=== PATIENT | female | born 2000 | race Caucasian/White ===

== ENCOUNTER 2023-12-15 15:11 | Inpatient (IN) ==
[2023-12-15] MEDS: ONDANSETRON INJ 2 MG/ML 2 ML VIAL IV STA ×2 (15:39→17:17)
[2023-12-15 16:03] LABS: Basophils # (auto) 0.08 K/uL (0.00-0.20); Basophils % (auto) 0.4 %; Eosinophils # (auto) 0.03 K/uL (0.00-0.50); Eosinophils % (auto) 0.1 %; Hematocrit (blood only) 43.4 % (37.0-47.0); Hemoglobin 14.6 g/dl (12.0-16.0); Immature Granulocytes # (auto) 0.12 K/uL (0.01-0.20); Immature Granulocytes % (auto) 0.6 %; Lymphocytes # (auto) 3.47 K/uL (1.20-3.40); Lymphocytes % (auto) 16.5 %; Mean Corpuscular Hemoglobin 29.7 pg (25.0-34.0); Mean Corpuscular Hgb Conc 33.6 g/dL (32.0-36.0); Mean Corpuscular Volume 88.2 fL (80.0-100.0); Mean Platelet Volume 9.4 fL (9.4-12.4); Monocytes % (auto) 5.2 %; Neutrophils # (auto) 16.25 K/uL (1.40-6.50); Neutrophils % (auto) 77.2 %; Platelet Count 383 K/uL (130-400); RDW Coefficient of Variation 11.9 % (11.5-14.5); RDW Standard Deviation 38.3 fL (36.4-46.3); Red Blood Count 4.92 M/uL (4.20-5.40); White Blood Count 21.05 K/ul (4.8-10.8)
[2023-12-15 16:04] LABS: Appearance Urine Clear (Clear); Bacteria Urine Automated None Seen (None Seen); Bilirubin Urine Negative (Negative); Blood Urine 2+ (Negative); Color Urine Yellow; Glucose Urine UA Negative (Negative); Ketones Urine Trace (Negative); Leukocyte Esterase Urine Trace (Negative); Nitrite Urine Negative (Negative); Protein Urine 1+ (Negative); RBC Urine Automated >20 /hpf (0-2); Specific Gravity Urine 1.017 (1.000-1.030); Urobilinogen Urine Negative (Negative); WBC Urine Automated 0-5 /hpf (0-5); pH Urine 6.5 (4.5-7.5)
[2023-12-15 16:17] LABS: Albumin Globulin Ratio 1.4 (0.9-2); Albumin Level 5.1 gm/dl (3.4-5.0); BUN Creatinine Ratio 11.8 (10-20); Bilirubin,Total 0.7 mg/dl (0.2-1.0); Calcium 10.5 mg/dl (8.6-10.3); Creatinine Clr Calc Pharmacy 112.1 ml/min; Est GFR (African American) 112.7 ml/min; Est GFR (Non-African American) 97.3 ml/min; Globulin 3.7 gm/dl (2.5-4.0); Potassium 3.5 mmol/L (3.5-5.1); Total Protein 8.8 gm/dl (6.0-8.3)
[2023-12-15] MEDS: OPTIRAY 320 100ml IV ONE (16:35)
--- NOTE | 2023-12-15 16:36 | Emergency Department Note ---
History of Present Illness General Chief complaint: Abdominal Pain Stated complaint: ABD PAIN Time Seen by Provider: 12/15/23 16:33 History of Present Illness Maximum Pain Intensity: 8 NAME: NOE GARCIA AGE: 23 SEX: F : 2000 ARRIVES VIA: Walk-In INFORMANT: Patient ED PROVIDER(S): BRANDON Healy, Amrik Jhaveri MD The patient is a pleasant 23-year-old female who arrives to the emergency department for evaluation of upper abdominal pain. She reports she began to have severe pain in the epigastric region, with nausea. She states she is planning to move to [place] with her who just returned from [place] in the armed services. They are scheduled to leave at 9:00 tomorrow morning. She reports the pain became so severe she was unable to tolerate it. She does report a history of previous gallbladder issues, however she has never had cholecystitis. She is afebrile, her vital signs are currently stable. Home Medications Medication Instructions Recorded Confirmed Type cholecalciferol (vitamin D3) 50 50 mcg PO DAILY 12/15/23 12/15/23 History mcg (2,000 unit) capsule (Vitamin D3) multivitamin 1 tab PO DAILY 12/15/23 12/15/23 History sertraline 100 mg tablet 100 mg PO DAILY 12/15/23 12/15/23 History trazodone 50 mg tablet 50 mg PO HS PRN Sleep 12/15/23 12/15/23 History Allergies Allergy/AdvReac Type Severity Reaction Status Date / Time No Known Allergies Allergy Verified 12/15/23 19:12 Past Med/Surg History Problem List (Updated 12/15/23 @ 20:12 by BRANDON Leonard) Cholecystitis (Acute) Medical History No pertinent family history Depression Surgical History No pertinent past surgical history Social History Smoking Status: Never smoker Preferred Language: Sinhala Feels Safe at Home: Yes Physical Exam Vital Signs Vital Signs - 24 hr 12/15/23 15:28 12/15/23 16:54 12/15/23 16:54 Temperature 36.8 C Temperature Source Oral Pulse Rate 113 H 89 Pulse Rate [Apical] 89 Pulse Rate from SpO2 Sensor Respiratory Rate 16 24 24 Respiratory Effort / Characteristics Non-Labored Spontaneous Respiratory Depth Normal Shallow Blood Pressure 117/82 Blood Pressure [Right Arm] 125/76 Blood Pressure Mean 93 Blood Pressure Mean [Right Arm] 92 Pulse Oximetry 97 97 97 Oxygen Delivery Method Room Air Room Air Room Air Sepsis Recent Fever Within 48 Hours No Sepsis New/Unexplained Change in Mental Status No Sepsis Action Taken by Nursing No Action Required 12/15/23 16:54 12/15/23 16:54 12/15/23 16:54 Temperature Temperature Source Pulse Rate 93 H Pulse Rate [Apical] Pulse Rate from SpO2 Sensor Respiratory Rate 16 Respiratory Effort / Characteristics Respiratory Depth Blood Pressure 125/76 125/76 Blood Pressure [Right Arm] Blood Pressure Mean 97 97 Blood Pressure Mean [Right Arm] Pulse Oximetry Oxygen Delivery Method Sepsis Recent Fever Within 48 Hours Sepsis New/Unexplained Change in Mental Status Sepsis Action Taken by Nursing 12/15/23 16:57 12/15/23 17:00 12/15/23 17:00 Temperature Temperature Source Pulse Rate 86 Pulse Rate [Apical] Pulse Rate from SpO2 Sensor 85 Respiratory Rate 19 Respiratory Effort / Characteristics Respiratory Depth Blood Pressure 95/72 L 95/72 L Blood Pressure [Right Arm] Blood Pressure Mean 85 85 Blood Pressure Mean [Right Arm] Pulse Oximetry 96 Oxygen Delivery Method Sepsis Recent Fever Within 48 Hours Sepsis New/Unexplained Change in Mental Status Sepsis Action Taken by Nursing 12/15/23 17:12 12/15/23 17:55 12/15/23 17:57 Temperature Temperature Source Pulse Rate 82 Pulse Rate [Apical] 86 Pulse Rate from SpO2 Sensor 84 Respiratory Rate 16 20 Respiratory Effort / Characteristics Non-Labored Spontaneous Respiratory Depth Normal Blood Pressure 113/76 Blood Pressure [Right Arm] 113/76 Blood Pressure Mean 93 Blood Pressure Mean [Right Arm] 88 Pulse Oximetry 98 94 Oxygen Delivery Method Room Air Sepsis Recent Fever Within 48 Hours Sepsis New/Unexplained Change in Mental Status Sepsis Action Taken by Nursing 12/15/23 18:00 12/15/23 18:06 12/15/23 18:24 Temperature Temperature Source Pulse Rate 79 81 Pulse Rate [Apical] Pulse Rate from SpO2 Sensor 78 79 Respiratory Rate 14 12 Respiratory Effort / Characteristics Respiratory Depth Blood Pressure 115/74 Blood Pressure [Right Arm] Blood Pressure Mean 87 Blood Pressure Mean [Right Arm] Pulse Oximetry 95 96 Oxygen Delivery Method Sepsis Recent Fever Within 48 Hours Sepsis New/Unexplained Change in Mental Status Sepsis Action Taken by Nursing 12/15/23 18:28 12/15/23 18:30 12/15/23 18:30 Temperature Temperature Source Pulse Rate 86 Pulse Rate [Apical] Pulse Rate from SpO2 Sensor Respiratory Rate Respiratory Effort / Characteristics Respiratory Depth Blood Pressure 119/76 119/76 Blood Pressure [Right Arm] Blood Pressure Mean 104 104 Blood Pressure Mean [Right Arm] Pulse Oximetry Oxygen Delivery Method Sepsis Recent Fever Within 48 Hours Sepsis New/Unexplained Change in Mental Status Sepsis Action Taken by Nursing 12/15/23 18:45 12/15/23 19:00 12/15/23 19:00 Temperature Temperature Source Pulse Rate 79 88 Pulse Rate [Apical] Pulse Rate from SpO2 Sensor 79 85 Respiratory Rate 19 17 Respiratory Effort / Characteristics Respiratory Depth Blood Pressure 111/77 Blood Pressure [Right Arm] Blood Pressure Mean 87 Blood Pressure Mean [Right Arm] Pulse Oximetry 94 95 Oxygen Delivery Method Sepsis Recent Fever Within 48 Hours Sepsis New/Unexplained Change in Mental Status Sepsis Action Taken by Nursing 12/15/23 19:00 12/15/23 19:15 12/15/23 19:30 Temperature Temperature Source Pulse Rate 79 Pulse Rate [Apical] Pulse Rate from SpO2 Sensor 82 Respiratory Rate 16 Respiratory Effort / Characteristics Respiratory Depth Blood Pressure 111/77 106/78 Blood Pressure [Right Arm] Blood Pressure Mean 87 91 Blood Pressure Mean [Right Arm] Pulse Oximetry 94 Oxygen Delivery Method Sepsis Recent Fever Within 48 Hours Sepsis New/Unexplained Change in Mental Status Sepsis Action Taken by Nursing VITALS: Vitals are noted on the nurse's note and reviewed by myself. Vital signs stable. GENERAL: 23-year-old, in slight distress from pain, nondiaphoretic, well- developed well-nourished. SKIN: The skin was without rashes, erythema, edema, or bruising. HEAD: Normocephalic atraumatic. HEART: Regular rate and rhythm without murmurs gallops or rubs. LUNGS: Clear to auscultation bilaterally without wheezes, rales or rhonchi. No retractions or accessory muscle use. ABDOMEN: Positive bowel sounds x 4. Soft, tender to palpation epigastric, right upper quadrant, Khalil sign positive. Slight guarding present. MUSCULOSKELETAL: No muscle atrophy, erythema, or edema noted. Normal gait. Strength 5/5 throughout. NEURO: Patient was alert and oriented to person place and time. No focal neurological deficits. Course Administered Medications Sodium Chloride (Nss) 1,000 mls @ 125 mls/hr IV .Q8H CHRISTA Stop: 01/14/24 19:29 Last Admin: 12/15/23 19:56 Dose: 125 mls/hr Documented By: SELENA Discontinued Medications Hydromorphone HCl (Hydromorphone Inj 0.5 Mg/0.5 Ml Syr) 0.5 mg IV NOW STA Stop: 12/15/23 18:03 Last Admin: 12/15/23 18:24 Dose: 0.5 mg Documented By: HUGO Sodium Chloride (Nss) 1,000 mls @ 999 mls/hr IV .Q1H1M ONE Stop: 12/15/23 18:01 Last Infusion: 12/15/23 19:42 Dose: Infused Documented By: Admin: 12/15/23 17:59 Dose: 999 mls/hr Documented By: HUGO Piperacillin Sod/Tazobactam Sod (Zosyn) 4.5 gm in 100 mls @ 200 mls/hr IV NOW ONE Stop: 12/15/23 18:35 Last Infusion: 12/15/23 19:42 Dose: Infused Documented By: Admin: 12/15/23 18:24 Dose: 200 mls/hr Documented By: HUGO Ioversol (Optiray 320 100ml) 90 ml IV ONCE ONE Stop: 12/15/23 16:35 Last Admin: 12/15/23 16:35 Dose: 90 ml Documented By: ROXANNA Morphine Sulfate (Morphine Sulfate 4 Mg/Ml 1 Ml Carp\Vial) 4 mg IV NOW STA Stop: 12/15/23 17:02 Last Admin: 12/15/23 17:17 Dose: 4 mg Documented By: HUGO Ondansetron HCl (Ondansetron Inj 2 Mg/Ml 2 Ml Vial) 4 mg IV NOW STA Stop: 12/15/23 15:35 Last Admin: 12/15/23 15:39 Dose: 4 mg Documented By: MARY Ondansetron HCl (Ondansetron Inj 2 Mg/Ml 2 Ml Vial) 4 mg IV NOW STA Stop: 12/15/23 17:02 Last Admin: 12/15/23 17:17 Dose: 4 mg Documented By: HUGO Medical Decision Making Differential Diagnosis Appendicitis, ovarian cyst, ovarian torsion, ectopic , TOA, PID, infections, diverticulitis, UTI, obstruction, mesenteric ischemia, aortic pathology, inflammatory bowel disease, renal colic, PUD, pancreatitis, biliary pathology, hernia, volvulus, constipation, as well as other pathologies. Medical Records Attestation: I reviewed the patient's medical records. Home Medications Current Medication List: was personally reviewed by me Laboratory Data Attestation: I reviewed the patient's lab results. Leukocytosis, 21.05, stable hemoglobin and hematocrit, no significant electrolyte abnormalities, LFTs within normal limits, total bilirubin 0.7. Lactate 2.2. 12/15/23 15:40 12/15/23 15:40 Lab Results 12/15/23 12/15/23 12/15/23 Range/Units 15:40 15:43 16:47 WBC 21.05 H (4.8-10.8) K/ul RBC 4.92 (4.20-5.40) M/uL Hgb 14.6 (12.0-16.0) g/dl Hct 43.4 (37.0-47.0) % MCV 88.2 (80.0-100.0) fL MCH 29.7 (25.0-34.0) pg MCHC 33.6 (32.0-36.0) g/dL RDW Std Deviation 38.3 (36.4-46.3) fL RDW Coeff of Emilia 11.9 (11.5-14.5) % Plt Count 383 (130-400) K/uL MPV 9.4 (9.4-12.4) fL Immature Gran % (Auto) 0.6 % Neut % (Auto) 77.2 % Lymph % (Auto) 16.5 % Burnett % (Auto) 5.2 % Eos % (Auto) 0.1 % Baso % (Auto) 0.4 % Neut # (Auto) 16.25 H (1.40-6.50) K/uL Lymph # (Auto) 3.47 H (1.20-3.40) K/uL Burnett # (Auto) 1.10 H (0.11-0.59) K/uL Eos # (Auto) 0.03 (0.00-0.50) K/uL Baso # (Auto) 0.08 (0.00-0.20) K/uL Immature Gran # (Auto) 0.12 (0.01-0.20) K/uL Sodium 138 (136-145) mmol/L Potassium 3.5 (3.5-5.1) mmol/L Chloride 101 (98-107) mmol/L Carbon Dioxide 28 (21-32) mmol/L Anion Gap 9 (3-11) BUN 10 (6-23) mg/dl Creatinine 0.85 (0.6-1.2) mg/dl Est Cr Clr Drug Dosing 112.1 ml/min Est GFR ( Amer) 112.7 ml/min Est GFR (Non-Af Amer) 97.3 ml/min BUN/Creatinine Ratio 11.8 (10-20) Glucose 97 (70-99(Fasting)) mg/dl Lactate 2.2 H* (0.4-2.0) mmol/L Calcium 10.5 H (8.6-10.3) mg/dl Total Bilirubin 0.7 (0.2-1.0) mg/dl AST 26 (13-39) U/L ALT 51 (7-52) U/L Alkaline Phosphatase 74 (34-104) U/L Total Protein 8.8 H (6.0-8.3) gm/dl Albumin 5.1 H (3.4-5.0) gm/dl Globulin 3.7 (2.5-4.0) gm/dl Albumin/Globulin Ratio 1.4 (0.9-2) Lipase 24 (11-82) U/L Urine Color Yellow Urine Appearance Clear (Clear) Urine pH 6.5 (4.5-7.5) Ur Specific [place] 1.017 (1.000-1.030) Urine Protein 1+ H (Negative) Urine Glucose (UA) Negative (Negative) Urine Ketones Trace H (Negative) Urine Blood 2+ H (Negative) Urine Nitrite Negative (Negative) Urine Bilirubin Negative (Negative) Urine Urobilinogen Negative (Negative) Ur Leukocyte Esterase Trace H (Negative) Urine WBC (Auto) 0-5 (0-5) /hpf Urine RBC (Auto) >20 H (0-2) /hpf U Hyaline Cast (Auto) 3-5 H (0-2) /lpf U Epithel Cells (Auto) 3-5 H (0-2) /hpf Urine Bacteria (Auto) None Seen (None Seen) POC Ur Test NEG (NEG) 12/15/23 12/15/23 Range/Units 17:55 18:33 WBC (4.8-10.8) K/ul RBC (4.20-5.40) M/uL Hgb (12.0-16.0) g/dl Hct (37.0-47.0) % MCV (80.0-100.0) fL MCH (25.0-34.0) pg MCHC (32.0-36.0) g/dL RDW Std Deviation (36.4-46.3) fL RDW Coeff of Emilia (11.5-14.5) % Plt Count (130-400) K/uL MPV (9.4-12.4) fL Immature Gran % (Auto) % Neut % (Auto) % Lymph % (Auto) % Burnett % (Auto) % Eos % (Auto) % Baso % (Auto) % Neut # (Auto) (1.40-6.50) K/uL Lymph # (Auto) (1.20-3.40) K/uL [place]ett # (Auto) (0.11-0.59) K/uL Eos # (Auto) (0.00-0.50) K/uL Baso # (Auto) (0.00-0.20) K/uL Immature Gran # (Auto) (0.01-0.20) K/uL Sodium (136-145) mmol/L Potassium (3.5-5.1) mmol/L Chloride (98-107) mmol/L Carbon Dioxide (21-32) mmol/L Anion Gap (3-11) BUN (6-23) mg/dl Creatinine (0.6-1.2) mg/dl Est Cr Clr Drug Dosing ml/min Est GFR ( Amer) ml/min Est GFR (Non-Af Amer) ml/min BUN/Creatinine Ratio (10-20) Glucose (70-99(Fasting)) mg/dl Lactate 1.0 (0.4-2.0) mmol/L Calcium (8.6-10.3) mg/dl Total Bilirubin (0.2-1.0) mg/dl AST (13-39) U/L ALT (7-52) U/L Alkaline Phosphatase (34-104) U/L Total Protein (6.0-8.3) gm/dl Albumin (3.4-5.0) gm/dl Globulin (2.5-4.0) gm/dl Albumin/Globulin Ratio (0.9-2) Lipase (11-82) U/L Urine Color Yellow Urine Appearance Clear (Clear) Urine pH 8.0 H (4.5-7.5) Ur Specific [place] > 1.045 H (1.000-1.030) Urine Protein Trace H (Negative) Urine Glucose (UA) Negative (Negative) Urine Ketones Negative (Negative) Urine Blood 2+ H (Negative) Urine Nitrite Negative (Negative) Urine Bilirubin Negative (Negative) Urine Urobilinogen Negative (Negative) Ur Leukocyte Esterase Negative (Negative) Urine WBC (Auto) 0-5 (0-5) /hpf Urine RBC (Auto) 11-20 H (0-2) /hpf U Hyaline Cast (Auto) 0-2 (0-2) /lpf U Epithel Cells (Auto) 0-2 (0-2) /hpf Urine Bacteria (Auto) None Seen (None Seen) POC Ur Test (NEG) Imaging Data Radiologist's Impression: Abdomen/Pelvis CT 12/15/23 16:17 CT SCAN OF THE ABDOMEN AND PELVIS WITH IV CONTRAST CLINICAL HISTORY: Generalized abdominal pain. Leukocytosis. COMPARISON STUDY: Abdominal CT dated 11/08/2022. TECHNIQUE: Following the IV administration of 90 cc of Optiray 320, CT scan of the abdomen and pelvis is performed from the lung bases to the proximal femora. Images are reviewed in the axial, sagittal, and coronal planes. IV contrast was administered without complication. A dose lowering technique was utilized adhering to the principles of ALARA. CT DOSE: 1314.64 mGy.cm FINDINGS: Lung bases: The heart is normal in size and without pericardial effusion. The lung bases are clear. Liver: The contrast-enhanced liver is enlarged, measuring 19.3 cm in length. Attenuation is diminished indicating steatosis. There is no intrahepatic biliary ductal dilatation. The hepatic veins and portal veins are patent. Gallbladder: The gallbladder wall is markedly thickened and edematous. Spleen: Normal in size and attenuation. Pancreas: Unremarkable. Adrenal glands: Unremarkable. Kidneys: The contrast enhanced kidneys are normal in size and without hydronephrosis. The kidneys enhance symmetrically. There is a 3 mm nonobstructing calculus in the right lower pole. No ureteral stone is seen. A 1.8 cm cyst arises from the right upper pole. Cortical scarring is seen in the posterior interpolar right kidney. Abdominal vasculature: The abdominal aorta is normal in course and caliber. Bowel: There is no bowel obstruction. The appendix is well-visualized and normal. Peritoneum: There is no intraperitoneal free air or abdominal ascites. There is a large fat-containing supraumbilical hernia. Lymphadenopathy: None. Pelvic viscera: The bladder is decompressed and appears mildly thick walled. The uterus and adnexa are normal as visualized noting bilateral ovarian follicles. There is trace free fluid in the cul-de-sac. Skeletal structures: No lytic or blastic lesions are seen. Mild sclerotic change is seen in the sacroiliac joints. IMPRESSION: 1. The gallbladder wall appears markedly thickened and edematous. Correlate with clinical and laboratory findings for evidence of cholecystitis. A right upper quadrant ultrasound is recommended for further assessment. 2. The liver is mildly enlarged and steatotic. 3. Right-sided nephrolithiasis. 4. Normal appendix. 5. The bladder is decompressed and appears thick-walled. Correlate with clinical findings and urinalysis. 6. Additional findings as above. ACT 112: Negative or not required by law. Electronically signed by: Amrik Downey M.D. 12/15/2023 4:50 PM Gallbladder Ultrasound 12/15/23 16:56 US gallbladder CLINICAL HISTORY: correlate with CT findings TECHNIQUE: Multiple real-time sonographic images of the right upper quadrant were obtained. Comparison: Comparison is made to CT abdomen pelvis 12/15/2023 FINDINGS: The liver is diffusely homogenous with normal contour and echogenicity. No focal mass lesions are seen. No intrahepatic ductal dilatation is seen. Numerous gallstones are seen. Gallbladder wall measures 6.3 mm with pericholecystic fluid. A sonographic Khalil's sign was elicited by the rubber goods finisher. The common duct measures 0.5 cm in diameter at the level of the hepatic artery. The visualized portions of the pancreas appear normal. The right kidney shows normal echogenicity, cortical thickness and renal contour. The right kidney shows no evidence of hydronephrosis. A right upper pole cyst measures 1.7 cm. Small free fluid is noted. IMPRESSION: 1. Findings compatible with acute cholecystitis. 2. Hepatic steatosis. ACT 112: Negative or not required by law. Electronically signed by: Guillermo Zelaya M.D. 12/15/2023 6:14 PM Blood Pressure Blood Pressure Findings: Normal blood pressure MDM Narrative The patient is a pleasant 23-year-old female who arrives to the emergency department for the above-stated complaint. Upon examination the patient is having severe epigastric and right upper quadrant abdominal pain. Initial workup was performed in triage including a saline lock, CBC, CMP, lipase, and urinalysis. CBC shows leukocytosis, 21.05, with stable hemoglobin and hematocrit, CMP shows no significant electrolyte abnormalities, LFTs within normal limits, total bilirubin 0.7. I did add a lactate due to the patient's leukocytosis, which resulted at 2.2. The patient was provided IV fluids, IV morphine, IV Zofran, which did help her pain significantly. Upon reevaluation the patient did require further pain control, she was provided 0.5 mg of IV Dilaudid. CT imaging of the abdomen and pelvis with IV contrast was obtained which showed a thickened and edematous gallbladder wall, recommending correlation with right upper quadrant ultrasound. Ultrasound imaging was obtained which showed findings consistent with acute cholecystitis. She was provided IV Zosyn for antimicrobial coverage. I was able to contact general surgery for consultation. Dr. Varner did agree to accept the patient under his care, for admission and surgical intervention. Please refer to Dr. Varner documentation for further patient care at this time. Continuous director cardiac: Order was placed for continuous director cardiac. Patient was placed on the director cardiac. Patient was noted to be in normal sinus rhythm at an initial rate of 89 bpm. Impression & Plan Cholecystitis Discharge Plan Visit Data Chief Complaint: Abdominal Pain Stated Complaint: ABD PAIN ED Provider: Amrik Jhaveri ED Midlevel Provider: Kait Chavira Discharge Problem: Cholecystitis Forms Stand Alone Forms: [employer] Prescriptions Prescriptions: No Action multivitamin Tablet 1 tab PO DAILY trazodone 50 mg Tablet 50 mg PO HS PRN (Reason: Sleep) sertraline 100 mg tablet 100 mg PO DAILY cholecalciferol (vitamin D3) [Vitamin D3] 50 mcg (2,000 unit) Capsule 50 mcg PO DAILY Referrals Referrals: PCP,NO [Primary Care Provider] -
--- NOTE | 2023-12-15 16:52 | CT Scan Report ---
CT SCAN OF THE ABDOMEN AND PELVIS WITH IV CONTRAST CLINICAL HISTORY: Generalized abdominal pain. Leukocytosis. COMPARISON STUDY: Abdominal CT dated 11/08/2022. TECHNIQUE: Following the IV administration of 90 cc of Optiray 320, CT scan of the abdomen and pelvi s is performed from the lung bases to the proximal femora. Images are reviewed in the axial, sagittal , and coronal planes. IV contrast was administered without complication. A dose lowering technique wa s utilized adhering to the principles of ALARA. CT DOSE: 1314.64 mGy.cm FINDINGS: Lung bases: The heart is normal in size and without pericardial effusion. The lung bases are clear. Liver: The contrast-enhanced liver is enlarged, measuring 19.3 cm in length. Attenuation is diminishe d indicating steatosis. There is no intrahepatic biliary ductal dilatation. The hepatic veins and por micki veins are patent. Gallbladder: The gallbladder wall is markedly thickened and edematous. Spleen: Normal in size and attenuation. Pancreas: Unremarkable. Adrenal glands: Unremarkable. Kidneys: The contrast enhanced kidneys are normal in size and without hydronephrosis. The kidneys enh ance symmetrically. There is a 3 mm nonobstructing calculus in the right lower pole. No ureteral ston e is seen. A 1.8 cm cyst arises from the right upper pole. Cortical scarring is seen in the posterior interpolar right kidney. Abdominal vasculature: The abdominal aorta is normal in course and caliber. Bowel: There is no bowel obstruction. The appendix is well-visualized and normal. Peritoneum: There is no intraperitoneal free air or abdominal ascites. There is a large fat-containin g supraumbilical hernia. Lymphadenopathy: None. Pelvic viscera: The bladder is decompressed and appears mildly thick walled. The uterus and adnexa ar e normal as visualized noting bilateral ovarian follicles. There is trace free fluid in the cul-de-sa c. Skeletal structures: No lytic or blastic lesions are seen. Mild sclerotic change is seen in the sacro iliac joints. IMPRESSION: 1. The gallbladder wall appears markedly thickened and edematous. Correlate with clinical and laborat ory findings for evidence of cholecystitis. A right upper quadrant ultrasound is recommended for furt her assessment. 2. The liver is mildly enlarged and steatotic. 3. Right-sided nephrolithiasis. 4. Normal appendix. 5. The bladder is decompressed and appears thick-walled. Correlate with clinical findings and urinaly sis. 6. Additional findings as above. ACT 112: Negative or not required by law. Electronically signed by: Amrik Downey M.D. 12/15/2023 4:50 PM
[2023-12-15] MEDS: MoRPHine SULFATE 4 MG/ML 1 ML CARP\\VIAL IV STA (17:17)
[2023-12-15] MEDS: SODIUM CHLORIDE 0.9% 1,000 ML IV ONE (17:59)
[2023-12-15 18:16] LABS: Appearance Urine Clear (Clear); Bacteria Urine Automated None Seen (None Seen); Bilirubin Urine Negative (Negative); Blood Urine 2+ (Negative); Cast Urine Automated 0-2 /lpf (0-2); Color Urine Yellow; Epithelial Cell Urine Auto 0-2 /hpf (0-2); Glucose Urine UA Negative (Negative); Ketones Urine Negative (Negative); Leukocyte Esterase Urine Negative (Negative); Nitrite Urine Negative (Negative); Protein Urine Trace (Negative); Specific Gravity Urine > 1.045 (1.000-1.030); Urobilinogen Urine Negative (Negative); WBC Urine Automated 0-5 /hpf (0-5)
--- NOTE | 2023-12-15 18:16 | Ultrasound Report ---
US gallbladder CLINICAL HISTORY: correlate with CT findings TECHNIQUE: Multiple real-time sonographic images of the right upper quadrant were obtained. Comparison: Comparison is made to CT abdomen pelvis 12/15/2023 FINDINGS: The liver is diffusely homogenous with normal contour and echogenicity. No focal mass lesions are see n. No intrahepatic ductal dilatation is seen. Numerous gallstones are seen. Gallbladder wall jules ures 6.3 mm with pericholecystic fluid. A sonographic Khalil's sign was elicited by the rework operator. The common duct measures 0.5 cm in diameter at the level of the hepatic artery. The visualized port ions of the pancreas appear normal. The right kidney shows normal echogenicity, cortical thickness and renal contour. The right kidney sh ows no evidence of hydronephrosis. A right upper pole cyst measures 1.7 cm. Small free fluid is noted. IMPRESSION: 1. Findings compatible with acute cholecystitis. 2. Hepatic steatosis. ACT 112: Negative or not required by law. Electronically signed by: Guillermo Zelaya M.D. 12/15/2023 6:14 PM
[2023-12-15] MEDS: HYDROmorphone INJ 0.5 MG/0.5 ML SYR IV STA (18:24)
[2023-12-15] MEDS: PIPERACILLIN/TAZOBACTAM 4.5 GM/100 ML BAG IV ONE (18:24)
[2023-12-15] MEDS ORDERED: MoRPHine SULFATE 4 MG/ML 1 ML CARP\\VIAL IV PRN (19:17)
--- NOTE | 2023-12-15 19:17 | History & Physical Report ---
Date of Service December 15, 2023 Assessment & Plan (1) Cholecystitis: Plan: Due to the patient's clinical presentation and findings on imaging she is being admitted on the surgical service proceeding as follows: Analgesics to be provided Antiemetics to be provided I feel be acceptable for patient to have some sips of clear liquids tonight, however we will make her n.p.o. after midnight Antibiotics to be administeredthe treating clinician in the [facility] [place] has already initiated Zosyn and this antibiotic will continue IV fluids will be provided for hydration Repeat labs will be checked in the morning to ensure there is no elevation of her LFTs. Will also check coagulation studies at that time Will tentatively have the patient on Dr. Varner operating room schedule tomorrow for a cholecystectomy. At the present time the patient is noted to be nontoxic-appearing as she is normotensive without tachycardia or fever. Additional recommendations be forthcoming based on her clinical course as it unfolds Will use SCDs for DVT prevention, no chemical means due to planned surgery She will be a level 1 full code History of Present Illness Chief Complaint: Abdominal pain Primary Care Provider: NO PCP This is a 23-year-old female who presented to the emergency department secondary to abdominal pain. Patient notes that she had pain that began at approximately noon on 12/15/2023 that was in her upper abdomen in the epigastric area and right upper quadrant. She says it was unrelated to meals. The patient notes that she has had similar pain for "years" but it is never this severe and never last quite as long and therefore she presented to the emergency department. With her symptoms today she says it was unrelated to eating anything, she denies any nausea or vomiting, she denies any fevers, shakes, or chills, denies any prior abdominal surgeries. She denies any modifying factors to her pain. Since arrival to the emergency department she has had labs and imaging which I independently reviewed. A CT scan of the abdomen pelvis showed that the patient's gallbladder was markedly thickened and edematous. Her appendix was noted to be normal. Due to the findings of her gallbladder on CT scan a gallbladder ultrasound was performed which showed findings compatible with acute cholecystitisthere were numerous gallstones with thickening of the gallbladder wall and pericholecystic fluid. There is no biliary ductal dilatation. Labs included CBC were white blood cell count was elevated at 21.0. Hemoglobin and hematocrit as well as the platelet count were normal. Chemistry profile showed sodium and potassium as well as the BUN and creatinine were normal. Lactic acid level was initially elevated at 2.2, but this was checked approximately 2 hours later and had normalized. There is no elevation of patient's LFTs or lipase. Urinalysis was not indicative of infection. At the time my interview the patient was resting comfortably bed and she was no distress. Concerning past medical history the patient says that she has been treated for depression and anxiety Concerning past surgical history she denies any prior surgeries Concerning social history she is a none smoker of tobacco products but does admit to using marijuana most recently 2 to 3 days ago Concerning family history she denies any family history of gallbladder disease Allergies Allergy/AdvReac Type Severity Reaction Status Date / Time No Known Allergies Allergy Verified 12/15/23 19:12 Home Medications Medication Instructions Recorded Confirmed Type cholecalciferol (vitamin D3) 50 50 mcg PO DAILY 12/15/23 12/15/23 History mcg (2,000 unit) capsule (Vitamin D3) multivitamin 1 tab PO DAILY 12/15/23 12/15/23 History sertraline 100 mg tablet 100 mg PO DAILY 12/15/23 12/15/23 History trazodone 50 mg tablet 50 mg PO HS PRN Sleep 12/15/23 12/15/23 History Past Med/Surg History Problem List (Updated 12/15/23 @ 19:15 by Dusty Siddiqi PA-C) Cholecystitis Medical History No pertinent family history Depression Surgical History No pertinent past surgical history Social History Smoking Status: Never smoker Preferred Language: Upper Sorbian Feels Safe at Home: Yes Review of Systems Review of Systems: All systems reviewed & are unremarkable except as noted in HPI & below Physical Exam Constitutional: WD/WN, vitals as above Eyes: + anicteric sclerae ENMT: Ears: no hearing impairment and no external ear abnormality No sublingual jaundice noted Neck: trachea midline Respiratory: normal respiratory effort, lungs clear to auscultation Cardiovascular: Rate/Rhythm: regular rate and regular rhythm Gastrointestinal (Abdomen): Patient's abdomen is rotund but soft. It is nonrigid. Bowel sounds are present. Patient did have pain with palpation in the right upper quadrant and to a lesser degree the epigastric area. There is no rebound tenderness or guarding. Musculoskeletal: No calf tenderness, no pedal edema Skin: no jaundice Neurologic: moves all extremities Psychiatric: A+Ox3, euthymic affect Results & Data Results & Data Vital Signs (Past 12 Hours) Vital Signs Temp Pulse Pulse Resp BP BP Pulse Ox 12/15/23 18:28 86 12/15/23 17:57 86 20 113/76 94 12/15/23 16:54 89 24 97 12/15/23 16:54 89 24 125/76 97 12/15/23 15:28 36.8 C 113 H 16 117/82 97 O2 Del Method 12/15/23 18:28 12/15/23 17:57 Room Air 12/15/23 16:54 Room Air 12/15/23 16:54 Room Air 12/15/23 15:28 Room Air Supervising Physician Co-Signing Physician Notes pnt d/w TIM Bridges, labs and imaging reviewed, agree with above. presented with epigastric abd pain, ct and us show cholecystitis, lft's normal, wbc elevated. admit, plan for robotic cholecystectomy in am. PG Care Time/CCT Total # of Minutes Spent Total Time Spent with Patient: Total time spent is greater than 50% in coordination of care (as documented) at patient's floor/unit and/or counseling patient: Coding Level of Care Code 91061 INT INP/OBS CARE 3/75MIN Diagnoses Cholecystitis K81.9
[2023-12-15] MEDS: SODIUM CHLORIDE 0.9% 1,000 ML IV SCH (19:56)
[2023-12-15] MEDS ORDERED: traZODone HCL 50 MG TAB PO PRN (21:12)
[2023-12-15] MEDS: ACETAMINOPHEN 1,000 MG/100 ML VIAL IV PRN (21:38)
[2023-12-15] MEDS: PIPERACILLIN/TAZOBACTAM 4.5 GM in DEXTROSE 5% MINI-B 100 ML IV SCH (23:20)
[2023-12-16 06:46] LABS: Basophils # (auto) 0.06 K/uL (0.00-0.20); Basophils % (auto) 0.4 %; Eosinophils # (auto) 0.13 K/uL (0.00-0.50); Eosinophils % (auto) 0.9 %; Hematocrit (blood only) 39.5 % (37.0-47.0); Immature Granulocytes # (auto) 0.05 K/uL (0.01-0.20); Immature Granulocytes % (auto) 0.3 %; Lymphocytes # (auto) 2.74 K/uL (1.20-3.40); Lymphocytes % (auto) 18.8 %; Mean Corpuscular Hemoglobin 29.5 pg (25.0-34.0); Mean Corpuscular Hgb Conc 32.9 g/dL (32.0-36.0); Mean Corpuscular Volume 89.8 fL (80.0-100.0); Mean Platelet Volume 9.4 fL (9.4-12.4); Monocytes # (auto) 1.05 K/uL (0.11-0.59); Monocytes % (auto) 7.2 %; Neutrophils # (auto) 10.56 K/uL (1.40-6.50); Neutrophils % (auto) 72.4 %; Platelet Count 276 K/uL (130-400); RDW Coefficient of Variation 11.9 % (11.5-14.5); RDW Standard Deviation 38.7 fL (36.4-46.3); White Blood Count 14.59 K/ul (4.8-10.8)
--- NOTE | 2023-12-16 06:58 | Anesthesiology Consultation ---
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 History Surgery Operation Date: 12/16/23 07:00 Proposed Procedures p Robotic Laparoscopic Cholecystectomy - Clayton Varner DO, FACS Height/Weight Height: 5 ft 4 in Weight: 89.2 kg Allergies Allergy/AdvReac Type Severity Reaction Status Date / Time No Known Allergies Allergy Verified 12/15/23 19:12 Medications Home Medications Medication Instructions Recorded Confirmed Last Taken cholecalciferol (vitamin D3) 50 50 mcg PO DAILY 12/15/23 12/15/23 12/14/23 mcg (2,000 unit) capsule (Vitamin D3) multivitamin 1 tab PO DAILY 12/15/23 12/15/23 12/14/23 sertraline 100 mg tablet 100 mg PO DAILY 12/15/23 12/15/23 12/14/23 trazodone 50 mg tablet 50 mg PO HS PRN Sleep 12/15/23 12/15/23 Unknown Active Medications Generic Name Dose Route Start Last Admin Trade Name Freq PRN Reason Stop Dose Admin Acetaminophen 1,000 mg in 100 mls @ 400 mls/hr 12/15/23 19:17 12/16/23 06:40 Ofirmev IV 12/18/23 19:16 400 mls/hr Q8H PRN Administration Moderate Pain (Scale 4, 5, 6) Sodium Chloride 1,000 mls @ 125 mls/hr 12/15/23 19:30 12/16/23 03:28 Nss IV 01/14/24 19:29 125 mls/hr .Q8H CHRISTA Administration Piperacillin Sod/Tazobactam 100 mls @ 25 mls/hr 12/16/23 00:00 12/16/23 03:27 Sod 4.5 gm/ Dextrose IV 12/26/23 00:00 Infused Q8H CHRISTA Infusion Protocol Past Medical History Medical History No pertinent family history Depression Past Surgical History Surgical History No pertinent past surgical history Social History Smoking Status: Never smoker Hx Alcohol Use: No Hx Substance Use: Yes substance use type: marijuana Last Used Substance: Days (ago) Last Used Substance Other:: 12/11 Physical Exam Vital Signs Last Vital Signs Temp 98.6 F 12/15/23 21:07 Pulse 91 H 12/15/23 21:07 Resp 18 12/15/23 21:07 BP 115/76 12/15/23 21:07 Pulse Ox 95 12/15/23 21:07 O2 Del Method Room Air 12/15/23 21:07 Testing Laboratory Results 12/16/23 06:05 Urine Color Yellow 12/15/23 17:55 Urine Appearance Clear (Clear) 12/15/23 17:55 Urine pH 8.0 (4.5-7.5) H 12/15/23 17:55 Ur Specific [place] > 1.045 (1.000-1.030) H 12/15/23 17:55 Urine Protein Trace (Negative) H 12/15/23 17:55 Urine Glucose (UA) Negative (Negative) 12/15/23 17:55 Urine Ketones Negative (Negative) 12/15/23 17:55 Urine Nitrite Negative (Negative) 12/15/23 17:55 Ur Leukocyte Esterase Negative (Negative) 12/15/23 17:55 Urine WBC (Auto) 0-5 /hpf (0-5) 12/15/23 17:55 Urine RBC (Auto) 11-20 /hpf (0-2) H 12/15/23 17:55 U Hyaline Cast (Auto) 0-2 /lpf (0-2) 12/15/23 17:55 U Epithel Cells (Auto) 0-2 /hpf (0-2) 12/15/23 17:55 Urine Bacteria (Auto) None Seen (None Seen) 12/15/23 17:55 12/15/23 15:43 POC Ur Test NEG
[2023-12-16 07:09] LABS: Albumin Globulin Ratio 1.3 (0.9-2); BUN Creatinine Ratio 9.3 (10-20); Calcium 8.8 mg/dl (8.6-10.3); Creatinine Clr Calc Pharmacy 127.2 ml/min; Est GFR (African American) 131.1 ml/min; Est GFR (Non-African American) 113.1 ml/min; INR 1.1 (0.9-1.1); Partial Thromboplastin Ratio 1.1; Partial Thromboplastin Time 29 Seconds (21-31); Potassium 3.8 mmol/L (3.5-5.1); Prothrombin Time 11.9 Seconds (9.0-12.0)
[2023-12-16] MEDS: SERTRALINE HCL 100 MG TABLET PO SCH (07:45)
--- NOTE | 2023-12-16 09:31 | Surgery Progress Note ---
Date of Service December 16, 2023 Assessment & Plan (1) Cholecystitis: Plan: cholelithiasis with acute cholecystitis. LFTs normal plan for robotic assisted laparoscopic cholecystectomy risks discussed to include but not limited to bleeding, infection, retained sto ne, bile leak, open surgery, damage to surrounding structures including bile duct, need for future or more extensive surgery, failure to treat symptoms, and risks of anesthesia. Potential discharge later today or tomorrow Admission and Anticipated Discharge Date Admission Date: December 15, 2023 Subjective Admitted for cholecystitis, no changes overnight, pain slightly improved Physical Exam Constitutional: WD/WN, vitals as above Respiratory: normal respiratory effort, lungs clear to auscultation Cardiovascular: RRR, no murmur, no edema Gastrointestinal (Abdomen): Percussion/Palpation: + abdomen tender (Tender palpation right upper quadrant) and abdomen soft; no guarding and abdomen not rigid Results & Data Vital Signs (Past 12 Hours) Vital Signs Temp Pulse Resp BP Pulse Ox O2 Del Method 12/16/23 07:40 37.0 C 80 14 103/68 95 Room Air Laboratory Results Laboratory Results - last 24 hr 12/15/23 12/15/23 12/15/23 15:40 15:43 16:47 WBC 21.05 H RBC 4.92 Hgb 14.6 Hct 43.4 MCV 88.2 MCH 29.7 MCHC 33.6 RDW Std Deviation 38.3 RDW Coeff of Emilia 11.9 Plt Count 383 MPV 9.4 Immature Gran % (Auto) 0.6 Neut % (Auto) 77.2 Lymph % (Auto) 16.5 [place] % (Auto) 5.2 Eos % (Auto) 0.1 Baso % (Auto) 0.4 Neut # (Auto) 16.25 H Lymph # (Auto) 3.47 H [place] # (Auto) 1.10 H Eos # (Auto) 0.03 Baso # (Auto) 0.08 Immature Gran # (Auto) 0.12 PT INR APTT PTT Ratio Sodium 138 Potassium 3.5 Chloride 101 Carbon Dioxide 28 Anion Gap 9 BUN 10 Creatinine 0.85 Est Cr Clr Drug Dosing 112.1 Est GFR ( Amer) 112.7 Est GFR (Non-Af Amer) 97.3 BUN/Creatinine Ratio 11.8 Glucose 97 Lactate 2.2 H* Calcium 10.5 H Total Bilirubin 0.7 AST 26 ALT 51 Alkaline Phosphatase 74 Total Protein 8.8 H Albumin 5.1 H Globulin 3.7 Albumin/Globulin Ratio 1.4 Lipase 24 Urine Color Yellow Urine Appearance Clear Urine pH 6.5 Ur Specific [place] 1.017 Urine Protein 1+ H Urine Glucose (UA) Negative Urine Ketones Trace H Urine Blood 2+ H Urine Nitrite Negative Urine Bilirubin Negative Urine Urobilinogen Negative Ur Leukocyte Esterase Trace H Urine WBC (Auto) 0-5 Urine RBC (Auto) >20 H U Hyaline Cast (Auto) 3-5 H U Epithel Cells (Auto) 3-5 H Urine Bacteria (Auto) None Seen POC Ur Test NEG 12/15/23 12/15/23 12/16/23 17:55 18:33 06:05 WBC 14.59 H RBC 4.40 Hgb 13.0 Hct 39.5 MCV 89.8 MCH 29.5 MCHC 32.9 RDW Std Deviation 38.7 RDW Coeff of [place] 11.9 Plt Count 276 MPV 9.4 Immature Gran % (Auto) 0.3 Neut % (Auto) 72.4 Lymph % (Auto) 18.8 [place] % (Auto) 7.2 Eos % (Auto) 0.9 Baso % (Auto) 0.4 Neut # (Auto) 10.56 H Lymph # (Auto) 2.74 [place] # (Auto) 1.05 H Eos # (Auto) 0.13 Baso # (Auto) 0.06 Immature Gran # (Auto) 0.05 PT 11.9 INR 1.1 APTT 29 PTT Ratio 1.1 Sodium 138 Potassium 3.8 Chloride 106 Carbon Dioxide 26 Anion Gap 6 BUN 7 Creatinine 0.75 Est Cr Clr Drug Dosing 127.2 Est GFR ( Amer) 131.1 Est GFR (Non-Af Amer) 113.1 BUN/Creatinine Ratio 9.3 L Glucose 92 Lactate 1.0 Calcium 8.8 Total Bilirubin 1.0 AST 27 ALT 50 Alkaline Phosphatase 62 Total Protein 7.0 D Albumin 4.0 Globulin 3.0 Albumin/Globulin Ratio 1.3 Lipase 21 Urine Color Yellow Urine Appearance Clear Urine pH 8.0 H Ur Specific [place] > 1.045 H Urine Protein Trace H Urine Glucose (UA) Negative Urine Ketones Negative Urine Blood 2+ H Urine Nitrite Negative Urine Bilirubin Negative Urine Urobilinogen Negative Ur Leukocyte Esterase Negative Urine WBC (Auto) 0-5 Urine RBC (Auto) 11-20 H U Hyaline Cast (Auto) 0-2 U Epithel Cells (Auto) 0-2 Urine Bacteria (Auto) None Seen POC Ur Test Diagnostic Findings CT and ultrasound personally viewed and interpreted and agree with the assessment of cholelithiasis with acute cholecystitis. Abdomen/Pelvis CT 12/15/23 16:17 CT SCAN OF THE ABDOMEN AND PELVIS WITH IV CONTRAST CLINICAL HISTORY: Generalized abdominal pain. Leukocytosis. COMPARISON STUDY: Abdominal CT dated 11/08/2022. TECHNIQUE: Following the IV administration of 90 cc of Optiray 320, CT scan of the abdomen and pelvis is performed from the lung bases to the proximal femora. Images are reviewed in the axial, sagittal, and coronal planes. IV contrast was administered without complication. A dose lowering technique was utilized adhering to the principles of ALARA. CT DOSE: 1314.64 mGy.cm FINDINGS: Lung bases: The heart is normal in size and without pericardial effusion. The lung bases are clear. Liver: The contrast-enhanced liver is enlarged, measuring 19.3 cm in length. Attenuation is diminished indicating steatosis. There is no intrahepatic biliary ductal dilatation. The hepatic veins and portal veins are patent. Gallbladder: The gallbladder wall is markedly thickened and edematous. Spleen: Normal in size and attenuation. Pancreas: Unremarkable. Adrenal glands: Unremarkable. Kidneys: The contrast enhanced kidneys are normal in size and without hydronephrosis. The kidneys enhance symmetrically. There is a 3 mm nonobstructing calculus in the right lower pole. No ureteral stone is seen. A 1.8 cm cyst arises from the right upper pole. Cortical scarring is seen in the posterior interpolar right kidney. Abdominal vasculature: The abdominal aorta is normal in course and caliber. Bowel: There is no bowel obstruction. The appendix is well-visualized and normal. Peritoneum: There is no intraperitoneal free air or abdominal ascites. There is a large fat-containing supraumbilical hernia. Lymphadenopathy: None. Pelvic viscera: The bladder is decompressed and appears mildly thick walled. The uterus and adnexa are normal as visualized noting bilateral ovarian follicles. There is trace free fluid in the cul-de-sac. Skeletal structures: No lytic or blastic lesions are seen. Mild sclerotic change is seen in the sacroiliac joints. IMPRESSION: 1. The gallbladder wall appears markedly thickened and edematous. Correlate with clinical and laboratory findings for evidence of cholecystitis. A right upper quadrant ultrasound is recommended for further assessment. 2. The liver is mildly enlarged and steatotic. 3. Right-sided nephrolithiasis. 4. Normal appendix. 5. The bladder is decompressed and appears thick-walled. Correlate with clinical findings and urinalysis. 6. Additional findings as above. ACT 112: Negative or not required by law. Electronically signed by: Amrik Downey M.D. 12/15/2023 4:50 PM Gallbladder Ultrasound 12/15/23 16:56 US gallbladder CLINICAL HISTORY: correlate with CT findings TECHNIQUE: Multiple real-time sonographic images of the right upper quadrant were obtained. Comparison: Comparison is made to CT abdomen pelvis 12/15/2023 FINDINGS: The liver is diffusely homogenous with normal contour and echogenicity. No focal mass lesions are seen. No intrahepatic ductal dilatation is seen. Numerous gallstones are seen. Gallbladder wall measures 6.3 mm with pericholecystic fluid. A sonographic Khalil's sign was elicited by the hoop machine operator. The common duct measures 0.5 cm in diameter at the level of the hepatic artery. The visualized portions of the pancreas appear normal. The right kidney shows normal echogenicity, cortical thickness and renal contour. The right kidney shows no evidence of hydronephrosis. A right upper pole cyst measures 1.7 cm. Small free fluid is noted. IMPRESSION: 1. Findings compatible with acute cholecystitis. 2. Hepatic steatosis. ACT 112: Negative or not required by law. Electronically signed by: Guillermo Zelaya M.D. 12/15/2023 6:14 PM PG Care Time/CCT Total # of Minutes Spent Total Time Spent with Patient: Total time spent is greater than 50% in coordination of care (as documented) at patient's floor/unit and/or counseling patient: Coding Level of Care Code 78373 SUB INP/OBS CARE 2/35MIN Diagnoses Cholecystitis K81.9
[2023-12-16] MEDS: INDOCYANINE GREEN 25 MG VIAL INJ ONE (11:39)
[2023-12-16] MEDS: LACTATED RINGER'S 1,000 ML IV SCH ×2 (11:42→16:03)
[2023-12-16] MEDS ORDERED: MIDAZOLAM HCL 1 MG/ML 2ML VIAL ONE (11:48)
[2023-12-16] MEDS ORDERED: fentaNYL citrate PF 100 MCG/2 ML VIAL ONE ×2 (11:48→12:23)
[2023-12-16] MEDS ORDERED: ePHEDrine sulfate 50 MG/ML AMP IV PRN (11:59)
[2023-12-16] MEDS ORDERED: ATROPINE SULFATE 0.1 MG/ML 10ML SYR IV PRN (11:59)
[2023-12-16] MEDS ORDERED: DROPERIDOL 5 MG/2 ML VIAL IV PRN (11:59)
[2023-12-16] MEDS ORDERED: ONDANSETRON INJ 2 MG/ML 2 ML VIAL ONE (12:55)
[2023-12-16] MEDS ORDERED: LIDOCAINE 2% 2 ML VIAL/AMP(20MG/ML) INFIL ONE (12:55)
[2023-12-16] MEDS ORDERED: DEXAMETHASONE SOD INJ 4 MG/ML VIAL ONE (12:55)
[2023-12-16] MEDS ORDERED: SUGAMMADEX SODIUM 200 MG/2 ML VIAL IV ONE (12:55)
[2023-12-16] MEDS ORDERED: PROPOFOL IV EMULSION 10 MG/ML 20 ML VIAL IV ONE (12:55)
--- NOTE | 2023-12-16 13:31 | Operative Report ---
PG Post Operative Report Pre & Post Diagnosis Operation Date: 12/16/23 07:00 Pre-Op Diagnosis: Cholecystitis Post-Op Diagnosis: Cholecystitis I identified the patient and participated in the time-out.: Yes Procedure Operation Date: 12/16/23 07:00 Actual Procedures p Robotic Laparoscopic Cholecystectomy(Not Applicable) - Clayton Varner DO, FACS Surgeon Clayton Varner DO, FACS Clinical Ob Pooja Owens Estimated Blood Loss 20 Findings Consistent with Post-Op Diagnosis Significant acute cholecystitis. Critical view of safety obtained, cystic duct and artery doubly clipped and divided. Specimens Gallbladder Anesthesia Type General Complications none Disposition Accompanied Patient To Recovery: No Disposition: Recovery Room Indications 23-year-old female presented with cholelithiasis with acute cholecystitis on imaging, plan for robotic cholecystectomy. The risks of the procedure were discussed, all questions were answered, and the patient agreed to proceed with s urgery as planned. Description of Procedure The patient was properly identified, consented, and taken to the operating room where she was placed in the supine position. 2.5 mg of indocyanine green were administered IV approximately 45 min prior to the surgery. General endotracheal anesthesia was induced. SCDs and a safety belt were placed. Preoperative antibiotics were administered. The patient's abdomen was prepped and draped in the standard sterile fashion. A surgical timeout was performed and all parties were in agreement that this was the correct patient and procedure to be performed and we continued as planned. An incision was made just above the umbilicus and to the left of midline. Veress needle was inserted and saline drop test confirmed entry to the abdomen. The abdomen was insufflated with carbon dioxide which the patient tolerated incident. Veress needle was removed and the abdomen is entered using the Optiview technique and a 5 mm camera. The introducer was removed and the abdomen inspected. No damage from initial trocar placement or Veress needle placement was identified. There were no significant abnormalities to the 4 quadrants of the abdomen. 8 mm robotic ports were then placed on the left and right. An additional 5 mm physician assistant surgery port was placed in the lateral right subcostal position. The patient was placed in reverse Trendelenburg position and rotated towards the left. The robot was then docked and the camera and robotic instruments were inserted. The gallbladder was significantly and acutely inflamed. Omental adhesions were taken down with blunt dissection and electrocautery. The gallbladder wall was quite thick and the gallbladder was distended. A cholecystotomy placed at the dome of the gallbladder and bile suctioned. This was then used for retraction. The dome of the gallbladder was grasped by the physician assistant surgery and retracted towards the left upper quadrant and the infundibulum was retracted toward the right lower quadrant revealing Calot's triangle. Peritoneal attachments were taken down with electrocautery and blunt dissection. The cystic duct and artery were circumferentially dissected. A window of safety was obtained showing the cystic duct entering the gallbladder with no aberrant structures noted. The cystic duct was short and mildly dilated. We were able to identify the cystic duct utilizing the ICG. The cystic duct and artery were doubly clipped and divided. The gallbladder was then lifted off the gallbladder fossa with electrocautery. The right upper quadrant was irrigated and hemostasis was found to be good. The gallbladder was placed in an Endo Catch bag and removed through the one of the port sites. The fascia and incision had to be extended to accommodate the gallbladder. This was then closed with [id number] 0 Vicryl suture utilizing a Jared-Nancy device. The instruments were removed and the robot was undocked. The trochars were removed and the abdomen was allowed to collapse. The skin of all ports was closed with 4-0 Monocryl subcuticular sutures. Dermabond was placed over the wounds. The patient was extubated in the operating room and taken to the PACU where she recovered without apparent incident. All sponge, instrument and needle counts were correct at the conclusion of the procedure. The patient tolerated the procedure well. The nurse practitioner was present and scrubbed for the entirety of the case and was essential in positioning the patient, prepping and draping, retraction and exposure, driving the laparoscope, exchange of the robotic instruments removal of the gallbladder, closure of the incisions, and placement of the dressings. I attest to the content of the Intraoperative Record and any orders documented therein. Any exceptions are noted below.
[2023-12-16] MEDS: BUPIVACAINE 0.5 % 5 MG/1 ML MPF 30ML VIAL ONE (13:37)
[2023-12-16] MEDS: HYDROmorphone INJ 2 MG/ML SYR/VIAL IV PRN (13:58)
[2023-12-16] MEDS: ACETAMINOPHEN 1,000 MG/100 ML VIAL IV STA (14:28)
--- NOTE | 2023-12-16 14:40 | Anesthesiology Progress Note ---
Date of Service December 16, 2023 Anesthesia Post Procedure Vital Signs Vital Signs: Temp Pulse Pulse Pulse Resp BP BP 12/16/23 14:30 36.7 C 85 14 126/79 12/16/23 14:20 68 14 113/76 12/16/23 14:10 37.2 C 90 12 125/83 12/16/23 14:00 82 14 127/85 12/16/23 13:50 89 18 129/85 12/16/23 13:40 36.5 C 88 16 133/88 12/16/23 11:34 36.8 C 75 20 113/66 12/16/23 07:40 37.0 C 80 14 103/68 12/15/23 21:07 37.0 C 91 H 18 12/15/23 20:26 96 H 16 12/15/23 19:30 106/78 12/15/23 19:15 79 16 12/15/23 19:00 111/77 12/15/23 19:00 111/77 12/15/23 19:00 88 17 12/15/23 18:45 79 19 12/15/23 18:30 119/76 12/15/23 18:30 119/76 12/15/23 18:28 86 12/15/23 18:24 81 12 12/15/23 18:06 79 14 12/15/23 18:00 115/74 12/15/23 17:57 86 20 12/15/23 17:55 113/76 12/15/23 17:12 82 16 12/15/23 17:00 95/72 L 12/15/23 17:00 95/72 L 12/15/23 16:57 86 19 12/15/23 16:54 125/76 12/15/23 16:54 125/76 12/15/23 16:54 93 H 16 12/15/23 16:54 89 24 12/15/23 16:54 89 24 12/15/23 15:28 36.8 C 113 H 16 117/82 BP Pulse Ox O2 Del Method O2 Flow Rate 12/16/23 14:30 97 Nasal Cannula 2 12/16/23 14:20 97 Nasal Cannula 2 12/16/23 14:10 96 Room Air 12/16/23 14:00 98 Oxymask 3 12/16/23 13:50 97 Oxymask 4 12/16/23 13:40 99 Oxymask 6 12/16/23 11:34 98 Room Air 12/16/23 07:40 95 Room Air 12/15/23 21:07 115/76 95 Room Air 12/15/23 20:26 112/68 95 Room Air 12/15/23 19:30 12/15/23 19:15 94 12/15/23 19:00 12/15/23 19:00 12/15/23 19:00 95 12/15/23 18:45 94 12/15/23 18:30 12/15/23 18:30 12/15/23 18:28 12/15/23 18:24 96 12/15/23 18:06 95 12/15/23 18:00 12/15/23 17:57 113/76 94 Room Air 12/15/23 17:55 12/15/23 17:12 98 12/15/23 17:00 12/15/23 17:00 12/15/23 16:57 96 12/15/23 16:54 12/15/23 16:54 12/15/23 16:54 12/15/23 16:54 97 Room Air 12/15/23 16:54 125/76 97 Room Air 12/15/23 15:28 97 Room Air Pain Intensity Abdomen: Pain Intensity: 3 Transfer of Care Handoff Completed per policy Notes Mental Status: alert / awake / arousable and participated in evaluation Nausea / Vomiting: adequately controlled Pain: adequately controlled Airway Patency, RR, SpO2: stable & adequate BP & HR: stable & adequate Hydration State: stable & adequate Anesthetic Complications: no major complications apparent and Pt Satisfied with anesthetic care
[2023-12-16] MEDS ORDERED: MoRPHine SULFATE 2 MG/ML CARP IV PRN (14:53)
[2023-12-16] MEDS ORDERED: Nursing to Pharmacy Communication SCH (16:00)
[2023-12-16] MEDS: oxyCODONE HCL IR 5 MG TAB (IMMEDIATE RELEASE) PO PRN (16:06)
[2023-12-16] MEDS: ACETAMINOPHEN 1,000 MG/100 ML VIAL IV SCH ×2 (16:08→23:21)
[2023-12-16] MEDS: ONDANSETRON INJ 2 MG/ML 2 ML VIAL IV PRN (16:20)
--- NOTE | 2023-12-16 20:37 | Communication Note ---
Date of Service: December 16, 2023 Surgical staff was notified that since surgery patient has had 2 bouts of emesis. The patient also notes that she feels hot. The patient was seen and evaluated at the bedside. She notes expected incisional pain near her surgical incisions. Her abdomen is soft with minimal distention. There is no jaundice in her sclera or skin or sublingual region. Her vitals were reviewed and since surgery she has been afebrile. She does not have tachycardia or hypotension. At this time I suspect the patient's symptoms are secondary to her recent surgery/anesthesia. We will continue to clinically monitor her providing analgesics and antiemetics as needed. Repeat labs have been ordered for tomorrow.
[2023-12-16] MEDS: MoRPHine SULFATE 4 MG/ML 1 ML CARP\\VIAL IV PRN (21:09)
[2023-12-17 06:37] LABS: Basophils # (auto) 0.03 K/uL (0.00-0.20); Basophils % (auto) 0.2 %; Eosinophils # (auto) 0.06 K/uL (0.00-0.50); Eosinophils % (auto) 0.4 %; Hemoglobin 12.1 g/dl (12.0-16.0); Immature Granulocytes # (auto) 0.06 K/uL (0.01-0.20); Immature Granulocytes % (auto) 0.4 %; Lymphocytes # (auto) 3.35 K/uL (1.20-3.40); Lymphocytes % (auto) 22.5 %; Mean Corpuscular Hemoglobin 29.7 pg (25.0-34.0); Mean Corpuscular Hgb Conc 32.7 g/dL (32.0-36.0); Mean Corpuscular Volume 90.7 fL (80.0-100.0); Mean Platelet Volume 9.3 fL (9.4-12.4); Monocytes # (auto) 0.86 K/uL (0.11-0.59); Monocytes % (auto) 5.8 %; Neutrophils # (auto) 10.52 K/uL (1.40-6.50); Neutrophils % (auto) 70.7 %; Platelet Count 278 K/uL (130-400); RDW Coefficient of Variation 11.9 % (11.5-14.5); RDW Standard Deviation 39.5 fL (36.4-46.3); Red Blood Count 4.08 M/uL (4.20-5.40); White Blood Count 14.88 K/ul (4.8-10.8)
[2023-12-17 07:03] LABS: Albumin Globulin Ratio 1.2 (0.9-2); Albumin Level 3.8 gm/dl (3.4-5.0); BUN Creatinine Ratio 7.6 (10-20); Bilirubin,Total 0.5 mg/dl (0.2-1.0); Calcium 9.1 mg/dl (8.6-10.3); Creatinine Clr Calc Pharmacy 120.8 ml/min; Est GFR (African American) 123.2 ml/min; Est GFR (Non-African American) 106.3 ml/min; Globulin 3.3 gm/dl (2.5-4.0); Potassium 3.4 mmol/L (3.5-5.1); Total Protein 7.1 gm/dl (6.0-8.3)
[2023-12-17] MEDS: POTASSIUM CHLORIDE CRTAB 20 MEQ TABCR PO STA (08:32)
--- NOTE | 2023-12-17 08:35 | Surgery Progress Note ---
Date of Service December 17, 2023 Assessment & Plan (1) Hx laparoscopic cholecystectomy: Plan: POD 1 doing as expected WBC 14 continue iv zosyn pt to get OOB ambulate today Incentive spir. post sites CDI no s/s infection noted n/v last night, none currently will see if she tolerates breakfast LFt wnl no fevers possible stay one more day vs d/c later this PM (2) Hypokalemia: Plan: K+ 3.4 ordered repletion PO Admission and Anticipated Discharge Date Admission Date: December 15, 2023 Supervising Physician Co-Signing Physician Notes Patient seen examined, labs reviewed, agree with above. POD #1 robotic cholecystectomy for acute cholecystitis. Still little sore in the right upper quadrant but her pain is improved. Tolerated a small amount of breakfast. Had some nausea and emesis overnight but this is resolved. On exam she is afebrile with stable vitals, abdomen soft, incisions with Dermabond, no infection. Abdomen appropriately tender to palpation. WBC stable at 14, LFTs normal. Okay to DC to home, follow-up in 2 weeks. Wound care instructions, activity restrictions, and return precautions given, call with questions or concerns. We will add Zofran to her outpatient prescription. Subjective pt with n/v last night tolerating reg diet this am so far no f/c expected p/o pain Review of Systems Constitutional: no fever and no chills Respiratory: no dyspnea Cardiovascular: no chest pain Gastrointestinal: + abdominal pain, + nausea and + vomitin g (n./v last night ) Musculoskeletal: no muscle weakness Integumentary: post surgical sites CDI dermabond Physical Exam Constitutional: well developed, cooperative and comfortable; no acute distress Respiratory: normal respiratory effort and able to speak in complete sentences; no respiratory distress Cardiovascular: Rate/Rhythm: regular rate Gastrointestinal (Abdomen): Inspection/Auscultation: + abdominal surgical incision (CDI dermabond no s/s infection ); abdomen not distended Percussion/Palpation: abdomen soft Musculoskeletal: no cyanosis or clubbing, extremities motor strength 5/5 Results & Data Vital Signs (Past 12 Hours) Vital Signs Temp Pulse Resp BP Pulse Ox O2 Del Method 12/17/23 07:07 98.6 F 77 16 92/59 L 93 Room Air 12/17/23 05:54 98.2 F 76 16 98/66 L 95 Room Air 07/18/24 02:10 98.2 F 63 16 100/64 95 Room Air 12/16/23 22:00 98.4 F 82 16 100/66 94 Room Air Results CBC w Diff Results: RBC 4.08 M/uL (4.20-5.40) L 12/17/23 WBC 14.88 K/ul (4.8-10.8) H 12/17/23 Hgb 12.1 g/dl (12.0-16.0) 12/17/23 Hct 37.0 % (37.0-47.0) 12/17/23 MCV 90.7 fL (80.0-100.0) 12/17/23 MCH 29.7 pg (25.0-34.0) 12/17/23 MCHC 32.7 g/dL (32.0-36.0) 12/17/23 RDW Standard Deviation 39.5 fL (36.4-46.3) 12/17/23 RDW Coefficient of Variation 11.9 % (11.5-14.5) 12/17/23 Plt Count 278 K/uL (130-400) 12/17/23 MPV 9.3 fL (9.4-12.4) L 12/17/23 Neutrophils (%) (Auto) 70.7 % 12/17/23 Lymphocytes (%) (Auto) 22.5 % 12/17/23 Monocytes # (Auto) 0.86 K/uL (0.11-0.59) H 12/17/23 Eosinophils # (Auto) 0.06 K/uL (0.00-0.50) 12/17/23 Immature Granulocyte % (Auto) 0.4 % 12/17/23 Neutrophils # (Auto) 10.52 K/uL (1.40-6.50) H 12/17/23 Lymphocytes # (Auto) 3.35 K/uL (1.20-3.40) 12/17/23 Monocytes # (Auto) 0.86 K/uL (0.11-0.59) H 12/17/23 Eosinophils # (Auto) 0.06 K/uL (0.00-0.50) 12/17/23 Basophils # (Auto) 0.03 K/uL (0.00-0.20) 12/17/23 Immature Granulocyte # (Auto) 0.06 K/uL (0.01-0.20) 4 PG Care Time/CCT Total # of Minutes Spent Total Time Spent with Patient: Total time spent is greater than 50% in coordination of care (as documented) at patient's floor/unit and/or counseling patient: Coding Level of Care Code 86543 Post Operative Follow-Up Diagnoses Hx laparoscopic cholecystectomy Z90.49 Hypokalemia E87.6
[2023-12-17] MEDS: oxyCODONE HCL IR 5 MG TAB (IMMEDIATE RELEASE) PO PRN (12:03)
--- NOTE | 2023-12-18 20:36 | Discharge Summary ---
Date of Service December 18, 2023 Admission HPI Per Admitting Provider This is a 23-year-old female who presented to the emergency department secondary to abdominal pain. Patient notes that she had pain that began at approximately noon on 12/15/2023 that was in her upper abdomen in the epigastric area and right upper quadrant. She says it was unrelated to meals. The patient notes that she has had similar pain for "years" but it is never this severe and never last quite as long and therefore she presented to the emergency department. With her symptoms today she says it was unrelated to eating anything, she denies any nausea or vomiting, she denies any fevers, shakes, or chills, denies any prior abdominal surgeries. She denies any modifying factors to her pain. Since arrival to the emergency department she has had labs and imaging which I independently reviewed. A CT scan of the abdomen pelvis showed that the patient's gallbladder was markedly thickened and edematous. Her appendix was noted to be normal. Due to the findings of her gallbladder on CT scan a gallbladder ultrasound was performed which showed findings compatible with acute cholecystitisthere were numerous gallstones with thickening of the gallbladder wall and pericholecystic fluid. There is no biliary ductal dilatation. Labs included CBC were white blood cell count was elevated at 21.0. Hemoglobin and hematocrit as well as the platelet count were normal. Chemistry profile showed sodium and potassium as well as the BUN and creatinine were normal. Lactic acid level was initially elevated at 2.2, but this was checked approximately 2 hours later and had normalized. There is no elevation of patient's LFTs or lipase. Urinalysis was not indicative of infection. At the time my interview the patient was resting comfortably bed and she was no distress. Concerning past medical history the patient says that she has been treated for depression and anxiety Concerning past surgical history she denies any prior surgeries Concerning social history she is a none smoker of tobacco products but does admit to using marijuana most recently 2 to 3 days ago Concerning family history she denies any family history of gallbladder disease Principal Diagnosis acute cholecystitis Discharge Exam Constitutional well developed, cooperative and comfortable; no acute distress Respiratory normal respiratory effort and able to speak in complete sentences; no respiratory distress Cardiovascular Rate/Rhythm: regular rate Gastrointestinal (Abdomen) Inspection/Auscultation: + abdominal surgical incision (CDI dermabond no s/s infection ); abdomen not distended Percussion/Palpation: abdomen soft Musculoskeletal no cyanosis or clubbing, extremities motor strength / Discharge Data Allergies Allergy/AdvReac Type Severity Reaction Status Date / Time No Known Allergies Allergy Verified 12/16/23 11:32 Consultations 12/15/23 18:29 ED Decision to Admit Stat Procedures Performed Operation Date: 12/16/23 07:00 Actual Procedures p Robotic Laparoscopic Cholecystectomy(Not Applicable) - Clayton Varner, DO, FACS Ordered Studies 12/15/23 16:17 CT abd pelvis IV con only Stat 12/15/23 16:56 US gallbladder Stat Hospital Course (1) Hx laparoscopic cholecystectomy: Patient is a pleasant 23 year old female that presented to [facility] ER on the evening of 12/15/23 with c/o abdominal pain (see HPI for full details). A ct scan revealed the patient had acute cholecystitis, she was admitted to the hospital for care and observation. She was given IV fluids and antibiotics. She underwent a laparoscopic cholecystectomy on 12/16/[address] Varner and tolerated the procedure well. She recovered in PACU without incidence and was taken back to her hospital room. She had some nausea and vomiting the evening after surgery, and was reevaluated by the surgical PA which suspected the patient's symptoms were secondary to her recent surgery/anesthesia. She was monitored and provided analgesics and antiemetics as needed. On post operative day one , she tolerated breakfast without n/v , her wbc remained at 14 with LFT in wnl, potassium was mildly decreased at 3.4 and repleted. She was afebrile and VSS. No s/s of infection at incisional sites. She was deemed stable for discharge on 12/17/23 and given a prescription for oral zofran and narcotic pain medication. She was given discharge instructions, return precautions, and follow appointment recommendations. She verbalized understanding and questions answered. (2) Hypokalemia: K+ 3.4 ordered repletion PO Total Time Total Time Spent Total Time Spent (In Minutes): 15 Discharge Plan Discharge Items Patient Disposition: Home - Self-Care Reason For Visit: SHERRIE Discharge Diagnosis: laparoscopic cholecystectomy Activity: Per Instructions section Lifting: No more than 10 pounds Bathing Comment: may shower starting 12/17/23; no soaking in tubs/pools x 2 weeks Exercise/Sports: Wait until after follow-up appointment Driving/Machine Use: no driving while taking narcotics for pain Non-emergency contact: Surgeon Call non-emergency contact if: you have any medication questions, your symptoms worsen, your pain is worsening, you have a fever, your temperature is above 101.5, your wound has increased redness, your wound has increased drainage and your wound pain has increased Follow-up/Referrals: Clayton Varner, SARAH BLUE [Physician] - 12/29/23 10:30 am ( follow up in clinic within 2 weeks ) PCP,NO [Primary Care Provider] - Diet: Regular Addtl Attending Provider Instructions: You have skin glue over your incisions called dermabond. you may shower with this on. It will tend to dissolve and fall off within a couple weeks. Do not pick at the skin glue You may purchase Tylenol and/or Ibuprofen over the counter if needed for additional pain control over the next few days. Take per manufacturers instructions Pending Studies at Discharge: Yes Studies:: surgical pathology Stand-Alone Forms: My [facility], Pain - Opioid Pain Management, Smoking Cessation Medications and DC Order Prescriptions: New oxycodone 5 mg tablet 5 - 10 mg PO .[id number] PRN (Reason: pain, for initial therapy, max 6 tabs per day) Qty: 15 0RF ondansetron HCl 4 mg tablet 4 mg PO Q8H MDD 3 PRN (Reason: nausea and vomiting) 4 Days Qty: 10 0RF Continued multivitamin Tablet 1 tab PO DAILY trazodone 50 mg Tablet 50 mg PO HS PRN (Reason: Sleep) sertraline 100 mg tablet 100 mg PO DAILY cholecalciferol (vitamin D3) [Vitamin D3] 50 mcg (2,000 unit) Capsule 50 mcg PO DAILY Discharge Orders: Discharge Order (Routine); Ordered 12/17/23 Ordered By: Pooja Stephen/Other Patient Handouts: Cholecystectomy, Hypokalemia Dc Admission Data Admit Date/Time: 12/15/23 19:20 Attending Provider: Clayton Varner Admit Provider: Clayton Varner Primary Care Provider: PCP,NO Other Providers: Clayton Varner Other Interventions: Discharge Summary Assessment (RN) Last Done: 12/17/23 11:29 Supervising Physician Co-Signing Physician Notes Patient seen examined, labs reviewed, agree with above. POD #1 robotic cholecystectomy for acute cholecystitis. Still little sore in the right upper quadrant but her pain is improved. Tolerated a small amount of breakfast. Had some nausea and emesis overnight but this is resolved. On exam she is afebrile with stable vitals, abdomen soft, incisions with Dermabond, no infection. Abdomen appropriately tender to palpation. WBC stable at 14, LFTs normal. Okay to DC to home, follow-up in 2 weeks. Wound care instructions, activity restrictions, and return precautions given, call with questions or concerns. We will add Zofran to her outpatient prescription. Coding Level of Care Code 28819 IN/OBS DISCH 30 MIN/LESS Diagnoses Hx laparoscopic cholecystectomy Z90.49 Hypokalemia E87.6
== END 2023-12-17 12:58 | disposition home or self-care (01) | DRG 419 ==
LOC: ED 15:11 → 3N 19:20